=== PATIENT | female | born 1945 | race Caucasian/White ===

== ENCOUNTER → 2023-11-20 09:36 | Outpatient (REF) | payer OTHER, SELFPAY ==
[2023-11-23 15:10] LABS: Quantiferon Mitogen minus NIL 9.41 IU/mL; Quantiferon NIL 0.07 IU/mL; Quantiferon Plus TB1 minus NIL 0.01 IU/mL (0.00-0.34); Quantiferon Plus TB2 minus NIL 0.02 IU/mL (0.00-0.34); Quantiferon TB Gold Plus Negative (Negative)
== END ==
LOC: REG 09:36
PROVIDERS: ATTENDING PHYSICIAN Internal Medicine Rheumatology; FAMILY PHYSICIAN Family Medicine; REFERRING PHYSICIAN Dermatology
DX: L40.50 Arthropathic psoriasis, unspecified (principal); M06.09 Rheumatoid arthritis without rheumatoid factor, multiple sites; M19.041 Primary osteoarthritis, right hand; M81.0 Age-related osteoporosis without current pathological fracture; R26.89 Other abnormalities of gait and mobility; R76.12 Nonspecific reaction to cell mediated immunity measurement of gamma interferon antigen response without active tuberculosis; Z51.81 Encounter for therapeutic drug level monitoring
CPT/HCPCS: 36415; 86480

== ENCOUNTER 2023-12-01 12:05 | Outpatient (RCR) | payer OTHER, SELFPAY | END 2023-12-01 23:59 | disposition home or self-care (01) | LOC: RPT 12:05 | PROVIDERS: ATTENDING PHYSICIAN Obstetrics & Gynecology; PRIMARYCARE PHYSICIAN Family Medicine | DX: N39.41 Urge incontinence (principal); M62.81 Muscle weakness (generalized); R26.89 Other abnormalities of gait and mobility; Z73.6 Limitation of activities due to disability; M25.552 Pain in left hip | CPT/HCPCS: 97110; 97112 ==

== ENCOUNTER 2024-01-07 11:54 | Outpatient (RCR) | payer OTHER, SELFPAY | END 2024-01-07 23:59 | disposition home or self-care (01) | LOC: RPT 11:54 | PROVIDERS: ATTENDING PHYSICIAN Obstetrics & Gynecology; PRIMARYCARE PHYSICIAN Family Medicine | DX: N39.41 Urge incontinence (principal); M62.81 Muscle weakness (generalized); R26.89 Other abnormalities of gait and mobility; Z73.6 Limitation of activities due to disability | CPT/HCPCS: 97110; 97140 ==

== ENCOUNTER → 2024-02-13 11:12 | Outpatient (REF) | payer OTHER, SELFPAY | LOC: RAD 11:12 | PROVIDERS: ATTENDING PHYSICIAN Family Medicine | DX: R07.81 Pleurodynia (principal) | CPT/HCPCS: 36415; 71101 ==

== ENCOUNTER 2024-04-01 01:27 | Emergency (ER) | payer OTHER, SELFPAY ==
[2024-04-01 01:27] VITALS: BMI 36.5
[2024-04-01 01:31] VITALS: BP 148/75
--- NOTE | 2024-04-01 01:49 | ED.GENMED ---
History of Present Illness
General
Chief Complaint: Musculo-Skeletal Complaint
Source: patient and ambulance crew
Exam Limitations: none
Time Seen by Provider: 04/01/24 01:32
History of Present Illness
History of Present Illness:
This a pleasant 78-year-old female who presents with right knee pain. She reports that she was moving around in bed when she felt a 'pop 'in her right knee. Patient had a right knee replacement by Dr. Fontenot at [facility]. Patient denies
any trauma. Does report that she cannot straighten out the knee.
Past History
Past History
ED Past Medical History: Asthma, GERD, HTN, Hypothyroidism and Other (Rheumatoid arthritis, Sears's palsy, lung disease)
ED Past Surgical History: Orthopedic
Social History
Tobacco: Non-smoker
Alcohol: None
Drug: None
Personal:
Living: alone
Employment: Employed
Review of Systems
Review of Systems
Allergies reviewed?: Yes
All Other Systems: ROS reviewed and negative except as documented in HPI and ROS
Constitutional: Reports no symptoms
EENT: Reports no symptoms
Respiratory: Reports no symptoms
Cardiac: Reports no symptoms
ABD/GI: Reports no symptoms
: Reports no symptoms
Musculoskeletal: Reports joint pain and joint swelling
Skin: Reports no symptoms
Neurological: Reports no symptoms
Endocrine: Reports no symptoms
Hematologic/Lymphatic: Reports no symptoms
Psychiatric: Reports anxiety
Phy Exam
General Physical Exam
General Presentation: well appearing and moderate distress
General age: appears stated age
General Skin: warm
General Habitus: obese
General Mental: alert
ENT Exam
ENT Exam: EOMI and neck supple
Cardiovascular Exam
Cardiovascular Exam: regular rate/rhythm and no edema
Pulmonary Exam
Pulmonary Exam: lungs clear and no respiratory distress
Neurological Exam
Neurological Exam: alert and oriented x3
Musculoskeletal Exam
Musculoskeletal Exam: edema, joint swelling, neuro vasc intact and other (Knee is stuck at 45 degrees.)
Skin Exam
Skin Exam: normal color
Psychiatric Exam
Psychiatric Exam: normal mood/affect
Course
Orders/Labs/Results
Orders:
Orders
04/01/24 01:36
CR Knee- Right 4 Or More View* Urgent
Comment:
Reason For Exam: pain
04/01/24 02:01
HYDROmorphone [Dilaudid] 1 mg IV NOW STA
Ondansetron Injectable [Zofran] 4 mg IV NOW STA
Vital Signs
Initial and Last Documented VS:
Initial Vital Signs
Temp Pulse Resp BP Pulse Ox
98.2 F 79 18 148/75 97
04/01/24 01:31 04/01/24 01:31 04/01/24 01:31 04/01/24 01:31 04/01/24 01:31
Last Documented Vital Signs
Temp Pulse Resp BP Pulse Ox
98.2 F 79 18 148/75 97
04/01/24 01:31 04/01/24 01:31 04/01/24 01:31 04/01/24 01:31 04/01/24 01:31
*Critical Care Note
Total Time (30-74mins, 75-104mins- exclusive of procedures): Not Applicable
Update Note
Update Note:
Spoke with Dr. Clifford who redirected me to [facility] based on the fact that Dr. Fontenot is a member of that group. Parag texted Dr. Mcginnis who is on-call for [facility].
Spoke with Dr. Mcginnis via Parag text: if it was just a simple hip prosthesis dislocation that�s easy. I think this is going to be more of an operative type of case. The other group has several total joint replacement surgeons, but they would never
touch anyone else�s work. I think only option is to transfer.
Patient agreeable to transfer
Called [facility], spoke with [facility] who agreed that patient should be transferred. Spoke with Dr. Harris, ER physician who accepted transfer
ED Attending Note
-
Portions of this chart may have been created with voice recognition software.� Occasional wrong word or��sound alike� substitutions may have occurred due to the inherent limitations of voice recognition software.
Discharge Plan
Departure
Patient Disposition: Acute Care Hospital
Date of Disposition: 04/01/24
Time of Disposition: 02:57
Condition: Good
Discharge Problem:
Dislocation of prosthetic knee joint
Prescriptions:
No Action
pantoprazole 40 MG tablet,delayed release (DR/EC)
40 mg PO DAILY
thyroid (pork) [[place] Thyroid] 60 MG tablet
60 mg PO DAILY
amlodipine 2.5 MG tablet
2.5 mg PO DAILY
fexofenadine [Angelica] 180 MG tablet
180 mg PO DAILY
acyclovir 400 MG tablet
400 mg PO BID
calcium carbonate 600 MG tablet
600 mg PO DAILY
budesonide [Pulmicort] 0.5 MG/2 ML suspension for nebulization
0.5 mg IH BID
halobetasol propionate 1 APPLIC cream
1 applic topical HS PRN (Reason: R heel rash)
Patient Comments:
TO R HEEL
albuterol sulfate 1 PUFF HFA aerosol inhaler
2 puff inhalation R Q4HPRN PRN (Reason: SOB)
fluticasone propionate 1 SPRAY spray,suspension
1 puff NASSPRAY Q6H PRN (Reason: ALLERGIES)
ipratropium bromide 0.2 MG/ML solution
0.5 mg inhalation BID
fluticasone propionate [Flovent HFA] 1 PUFF HFA aerosol inhaler
2 puff inhalation BID
magnesium oxide 500 MG capsule
500 mg PO QPM
Eliquis 5 MG tablet
5 mg PO BID
escitalopram oxalate 5 MG tablet
2.5 mg PO BID
cyanocobalamin (vitamin B-12) 1,000 MCG tablet
500 mcg PO DAILY
cholecalciferol (vitamin D3) 1,000 UNITS tablet
1,000 units PO BID
oxycodone 5 mg tablet
5 mg PO Q4H PRN (Reason: pain) Qty: 20 0RF
cyclobenzaprine 10 mg tablet
10 mg PO TID PRN (Reason: muscle spasm) Qty: 20 0RF
oxycodone 5 mg tablet
5 mg PO Q8H PRN (Reason: pain) Qty: 6 0RF
Referrals:
Rosaura Tubbs MD [Family Provider] -
Hospital Transfer
Other hospital: [facility]
I certify that the patient requires transfer: Yes
Discussed case with accepting physician: [facility] on behalf of Dr Harris
Reason for transfer: higher level of care
Interventions
Interventions:
*Risk Screen - Suicide Last Done: 04/01/24 01:31
*General Assessment Last Done: 04/01/24 01:31
*Neglect/Abuse Screening Last Done: 04/01/24 01:31
ED- Fall Risk Assessment Last Done: 04/01/24 01:27
*ED COVID-19 Vaccine History Last Done: 04/01/24 01:27
*Nursing Disposition Last Done: 04/01/24 03:50
ED-Musculoskeletal Assessment Last Done: 04/01/24 01:27
Discharge Date and Time
Discharge Date/Time: 04/01/24 03:52
Print Language: BRITISH
[2024-04-01] MEDS: ZOFRAN 4 MG IV (02:59)
[2024-04-01] MEDS: DILAUDID 1 MG IV (03:00)
== END 2024-04-01 03:52 | disposition short-term general hospital (02) ==
LOC: EMR 01:27
PROVIDERS: EMERGENCY PHYSICIAN Student in an Organized Health Care Education/Training Program; FAMILY PHYSICIAN Family Medicine
DX: T84.022A Instability of internal right knee prosthesis, initial encounter (principal); Y79.2 Prosthetic and other implants, materials and accessory orthopedic devices associated with adverse incidents; J45.909 Unspecified asthma, uncomplicated; K21.9 Gastro-esophageal reflux disease without esophagitis; I10 Essential (primary) hypertension; E03.9 Hypothyroidism, unspecified; M06.9 Rheumatoid arthritis, unspecified; Z96.651 Presence of right artificial knee joint
CPT/HCPCS: 99285; 96374; 96375; 73564; 99284

== ENCOUNTER → 2024-04-08 11:24 | Outpatient (REF) | payer OTHER, SELFPAY ==
[2024-04-08 12:24] LABS: % Basophils 0.5 % (0-2); % Eosinophils 2.9 % (0-6); % Immature Granulocytes 0.3 % (0-0.5); % Lymphocytes 16.6 % (20.5-51.1); % Monocytes 9.1 % (1.7-9.3); % Neutrophils 70.6 % (42.2-75.2); Absolute Eosinophils 0.2 10^3/uL (0-0.7); Absolute Lymphocytes 1.2 10^3/uL (1.2-3.4); Absolute Monocytes 0.7 10^3/uL (0.1-0.6); Absolute Neutrophils 5.2 10^3/uL (1.4-6.5); Hematocrit 35.1 % (37.0-47.0); Hemoglobin 11.5 g/dL (12.0-16.0); Mean Corp Hgb Conc. 32.8 g/dL (33.0-37.0); Mean Corpuscular Hgb 33.1 pg (27.0-31.0); Mean Corpuscular Volume 101.2 fL (81.0-99.0); Nucleated Red Blood Cells % 0 %; Platelet Count 290 10^3/uL (130-400); Red Blood Cell Count 3.47 10^6/uL (4.20-5.40); Red Cell Dist. Width 13.5 % (11.5-14.5); White Blood Cell Count 7.3 10^3/uL (4.8-10.8)
[2024-04-08 12:55] LABS: ALT (SGPT) 29 U/L (0-35); AST (SGOT) 31 U/L (14-36); Albumin 4.2 g/dl (3.5-5.0); Alkaline Phosphatase 76 U/L (38-126); Blood Urea Nitrogen 15 mg/dl (7-17); Calcium 9.7 mg/dl (8.4-10.2); Carbon Dioxide 29 mmol/L (22-30); Chloride 104 mmol/L (98-107); Glucose 111 mg/dl (70-99); Sodium 139 mmol/L (135-145); Total Bilirubin 0.6 mg/dl (0.2-1.3); Total Protein 7.2 g/dl (6.3-8.2); eGFR > 60.00
[2024-04-08 12:59] LABS: Erythrocyte Sed Rate 106 mm/hour (0-20)
[2024-04-08 13:15] LABS: Free T3 3.64 pg/ml (2.77-5.27); Free T4 0.91 ng/dl (0.78-2.19)
[2024-04-08 13:29] LABS: TSH 0.69 uIU/ml (0.47-4.68)
[2024-04-11 07:04] LABS: Quantiferon Mitogen minus NIL 1.09 IU/mL; Quantiferon NIL 0.07 IU/mL; Quantiferon Plus TB1 minus NIL 0.02 IU/mL (<=0.34); Quantiferon Plus TB2 minus NIL 0.02 IU/mL (<=0.34); Quantiferon TB Gold Plus Negative (Negative)
== END ==
LOC: REG 11:24
PROVIDERS: ATTENDING PHYSICIAN Internal Medicine Endocrinology, Diabetes & Metabolism; FAMILY PHYSICIAN Family Medicine; REFERRING PHYSICIAN Internal Medicine Rheumatology
DX: E03.9 Hypothyroidism, unspecified (principal); E07.9 Disorder of thyroid, unspecified; E55.9 Vitamin D deficiency, unspecified; L40.50 Arthropathic psoriasis, unspecified; M06.09 Rheumatoid arthritis without rheumatoid factor, multiple sites; M15.2 Bouchard's nodes (with arthropathy); M17.11 Unilateral primary osteoarthritis, right knee; M19.041 Primary osteoarthritis, right hand; M19.042 Primary osteoarthritis, left hand; M25.512 Pain in left shoulder; M54.2 Cervicalgia; M79.641 Pain in right hand; M79.642 Pain in left hand; M81.0 Age-related osteoporosis without current pathological fracture; R26.89 Other abnormalities of gait and mobility; R50.9 Fever, unspecified; Z11.1 Encounter for screening for respiratory tuberculosis; Z51.81 Encounter for therapeutic drug level monitoring; Z68.35 Body mass index [BMI] 35.0-35.9, adult; Z68.36 Body mass index [BMI] 36.0-36.9, adult; Z79.899 Other long term (current) drug therapy
CPT/HCPCS: 36415; 80053; 84439; 84443; 84481; 85025; 85652; 86140; 86480

== ENCOUNTER → 2024-04-22 13:08 | Outpatient (REF) | payer OTHER, SELFPAY | LOC: PAVMRI 13:08 | PROVIDERS: ATTENDING PHYSICIAN Nurse Practitioner Family; FAMILY PHYSICIAN Family Medicine | DX: M25.571 Pain in right ankle and joints of right foot (principal) | CPT/HCPCS: 73721 ==

== ENCOUNTER → 2024-05-11 11:36 | Outpatient (REF) | payer OTHER, SELFPAY ==
[2024-05-11 12:39] LABS: % Basophils 0.8 % (0-2); % Eosinophils 2.6 % (0-6); % Immature Granulocytes 0.3 % (0-0.5); % Neutrophils 67.3 % (42.2-75.2); Absolute Basophils 0.1 10^3/uL (0-0.2); Absolute Eosinophils 0.2 10^3/uL (0-0.7); Absolute Lymphocytes 1.4 10^3/uL (1.2-3.4); Absolute Monocytes 0.8 10^3/uL (0.1-0.6); Absolute Neutrophils 5.1 10^3/uL (1.4-6.5); Hematocrit 32.6 % (37.0-47.0); Mean Corp Hgb Conc. 33.7 g/dL (33.0-37.0); Mean Corpuscular Hgb 32.9 pg (27.0-31.0); Mean Corpuscular Volume 97.6 fL (81.0-99.0); Mean Platelet Volume 8.8 fL (7.4-10.4); Nucleated Red Blood Cells % 0 %; Platelet Count 283 10^3/uL (130-400); Red Blood Cell Count 3.34 10^6/uL (4.20-5.40); Red Cell Dist. Width 13.8 % (11.5-14.5); White Blood Cell Count 7.6 10^3/uL (4.8-10.8)
[2024-05-11 13:01] LABS: ALT (SGPT) 20 U/L (0-35); AST (SGOT) 25 U/L (14-36); Albumin 4.2 g/dl (3.5-5.0); Alkaline Phosphatase 83 U/L (38-126); Blood Urea Nitrogen 15 mg/dl (7-17); Calcium 9.6 mg/dl (8.4-10.2); Carbon Dioxide 29 mmol/L (22-30); Chloride 101 mmol/L (98-107); Glucose 87 mg/dl (70-99); Sodium 136 mmol/L (135-145); Total Bilirubin 0.5 mg/dl (0.2-1.3); Total Protein 7.1 g/dl (6.3-8.2); eGFR > 60.00
[2024-05-11 13:56] LABS: Erythrocyte Sed Rate 112 mm/hour (0-20)
[2024-05-12 17:18] LABS: Hepatitis B Surface Antigen Negative (Negative)
[2024-05-12 19:00] LABS: Hepatitis B Core Ab, IgM Negative (Negative)
[2024-05-12 19:12] LABS: Hepatitis B Core Ab, Total Negative (Negative); Hepatitis C Antibody Negative (Negative)
[2024-05-13 14:04] LABS: Quantiferon NIL 0.09 IU/mL; Quantiferon Plus TB1 minus NIL 0.01 IU/mL (<=0.34); Quantiferon Plus TB2 minus NIL 0.03 IU/mL (<=0.34); Quantiferon TB Gold Plus Negative (Negative)
== END ==
LOC: REG 11:36
PROVIDERS: ATTENDING PHYSICIAN Physician Assistant; FAMILY PHYSICIAN Dermatology
DX: L40.50 Arthropathic psoriasis, unspecified (principal); Z11.1 Encounter for screening for respiratory tuberculosis; Z51.81 Encounter for therapeutic drug level monitoring; Z79.899 Other long term (current) drug therapy; M79.643 Pain in unspecified hand
CPT/HCPCS: 36415; 73130; 80053; 85025; 85652; 86140; 86480; 86704; 86705; 86803; 87340

== ENCOUNTER → 2024-11-09 11:25 | Outpatient (REF) | payer OTHER, SELFPAY ==
[2024-11-09 12:08] LABS: Urine Albumin Negative (Neg - Trace); Urine Bilirubin Negative (Negative); Urine Character Clear (Clear); Urine Color Yellow; Urine Glucose Negative (Negative); Urine Ketone Negative (Negative); Urine Leukocyte 3+ (Negative); Urine Nitrite Negative (Negative); Urine Occult Blood 2+ (Negative); Urine Specific Gravity 1.005 (<1.030); Urine Urobilinogen Negative (Neg - 1+)
[2024-11-09 12:17] LABS: Urine Bacteria Few (Negative); Urine Red Blood Cell 0-2 /HPF (0-2)
[2024-11-09 12:26] LABS: % Basophils 0.8 % (0-2); % Immature Granulocytes 0.3 % (0-0.5); % Lymphocytes 20.2 % (20.5-51.1); % Monocytes 9.9 % (1.7-9.3); % Neutrophils 63.8 % (42.2-75.2); Absolute Basophils 0.1 10^3/uL (0-0.2); Absolute Eosinophils 0.4 10^3/uL (0-0.7); Absolute Lymphocytes 1.5 10^3/uL (1.2-3.4); Absolute Monocytes 0.8 10^3/uL (0.1-0.6); Absolute Neutrophils 4.9 10^3/uL (1.4-6.5); Hematocrit 36.1 % (37.0-47.0); Hemoglobin 11.5 g/dL (12.0-16.0); Mean Corp Hgb Conc. 31.9 g/dL (33.0-37.0); Mean Corpuscular Hgb 31.7 pg (27.0-31.0); Mean Corpuscular Volume 99.4 fL (81.0-99.0); Mean Platelet Volume 8.9 fL (7.4-10.4); Nucleated Red Blood Cells % 0 %; Platelet Count 282 10^3/uL (130-400); Red Blood Cell Count 3.63 10^6/uL (4.20-5.40); Red Cell Dist. Width 14.9 % (11.5-14.5); White Blood Cell Count 7.6 10^3/uL (4.8-10.8)
[2024-11-09 15:45] LABS: ALT (SGPT) 17 U/L (0-35); AST (SGOT) 23 U/L (14-36); Albumin 4.3 g/dl (3.5-5.0); Alkaline Phosphatase 76 U/L (38-126); Blood Urea Nitrogen 13 mg/dl (7-17); Calcium 9.1 mg/dl (8.4-10.2); Carbon Dioxide 29 mmol/L (22-30); Chloride 99 mmol/L (98-107); Glucose 109 mg/dl (70-99); HDL Cholesterol 55 mg/dl; LDL Cholesterol, Calculated 128 mg/dl; Potassium 4.4 mmol/L (3.5-5.1); Sodium 138 mmol/L (135-145); Total Bilirubin 0.4 mg/dl (0.2-1.3); Total Cholesterol 201 mg/dl (50-199); Total Protein 7.4 g/dl (6.3-8.2); Triglyceride 92 mg/dl (10-149); Very Low Density Lipoprotein 18 mg/dl (0-30); eGFR > 60.00
[2024-11-09 16:09] LABS: Vitamin D, 25-OH*** 58.8 ng/mL (30-80)
[2024-11-09 16:23] LABS: TSH Reflex To Free T4 2.28 uIU/ml (0.47-4.68)
[2024-11-09 17:06] LABS: Folate 9.4 ng/ml (2.76-20); Vitamin B12 959 pg/ml (239-931)
== END ==
LOC: REG 11:25
PROVIDERS: ATTENDING PHYSICIAN Family Medicine; OTHER PHYSICIAN Nurse Practitioner Primary Care
DX: I10 Essential (primary) hypertension (principal); D75.89 Other specified diseases of blood and blood-forming organs; I48.0 Paroxysmal atrial fibrillation; E03.9 Hypothyroidism, unspecified; E55.9 Vitamin D deficiency, unspecified; M81.0 Age-related osteoporosis without current pathological fracture
CPT/HCPCS: 36415; 80053; 80061; 81003; 81015; 82306; 82607; 82746; 84443; 85025

== ENCOUNTER → 2024-11-17 12:17 | Outpatient (REF) | payer OTHER, SELFPAY | LOC: WDC 12:17 | PROVIDERS: ATTENDING PHYSICIAN Obstetrics & Gynecology Gynecology; FAMILY PHYSICIAN Family Medicine | DX: N95.0 Postmenopausal bleeding (principal); Z12.39 Encounter for other screening for malignant neoplasm of breast; M81.0 Age-related osteoporosis without current pathological fracture; Z12.31 Encounter for screening mammogram for malignant neoplasm of breast | CPT/HCPCS: 76830; 76856; 77063; 77067; 77080 ==

== ENCOUNTER → 2024-12-09 11:26 | Outpatient (REF) | payer OTHER, SELFPAY ==
[2024-12-09 12:28] LABS: % Eosinophils 4.4 % (0-6); % Immature Granulocytes 0.3 % (0-0.5); % Lymphocytes 29.1 % (20.5-51.1); % Monocytes 10.1 % (1.7-9.3); % Neutrophils 55.1 % (42.2-75.2); Absolute Basophils 0.1 10^3/uL (0-0.2); Absolute Eosinophils 0.3 10^3/uL (0-0.7); Absolute Monocytes 0.7 10^3/uL (0.1-0.6); Absolute Neutrophils 3.8 10^3/uL (1.4-6.5); Hematocrit 36.4 % (37.0-47.0); Hemoglobin 11.6 g/dL (12.0-16.0); Mean Corp Hgb Conc. 31.9 g/dL (33.0-37.0); Mean Corpuscular Hgb 32.2 pg (27.0-31.0); Mean Corpuscular Volume 101.1 fL (81.0-99.0); Nucleated Red Blood Cells % 0 %; Platelet Count 273 10^3/uL (130-400); Red Cell Dist. Width 15.1 % (11.5-14.5); White Blood Cell Count 6.8 10^3/uL (4.8-10.8)
[2024-12-09 13:31] LABS: ALT (SGPT) 17 U/L (0-35); AST (SGOT) 19 U/L (14-36); Albumin 4.2 g/dl (3.5-5.0); Alkaline Phosphatase 73 U/L (38-126); Blood Urea Nitrogen 14 mg/dl (7-17); Carbon Dioxide 33 mmol/L (22-30); Chloride 97 mmol/L (98-107); Glucose 91 mg/dl (70-99); Potassium 4.4 mmol/L (3.5-5.1); Sodium 137 mmol/L (135-145); Total Bilirubin 0.5 mg/dl (0.2-1.3); Total Protein 7.2 g/dl (6.3-8.2); eGFR > 60.00
[2024-12-09 14:05] LABS: Erythrocyte Sed Rate 58 mm/hour (0-20)
== END ==
LOC: REG 11:26
PROVIDERS: ATTENDING PHYSICIAN Internal Medicine; FAMILY PHYSICIAN Family Medicine
DX: L40.50 Arthropathic psoriasis, unspecified (principal)
CPT/HCPCS: 36415; 80053; 85025; 85652; 86140

== ENCOUNTER → 2025-01-09 11:50 | Outpatient (REF) | payer OTHER, SELFPAY | LOC: HWRCS 11:50 | PROVIDERS: ATTENDING PHYSICIAN Nurse Practitioner; FAMILY PHYSICIAN Family Medicine | DX: I48.0 Paroxysmal atrial fibrillation (principal); I10 Essential (primary) hypertension; R06.02 Shortness of breath; R07.89 Other chest pain | CPT/HCPCS: 78452; 93017; A9500; J2785 ==

== ENCOUNTER → 2025-01-13 07:30 | Outpatient (REF) | payer OTHER, SELFPAY | LOC: CLAB 07:30 | PROVIDERS: ATTENDING PHYSICIAN Obstetrics & Gynecology Gynecology | DX: N87.9 Dysplasia of cervix uteri, unspecified (principal) | CPT/HCPCS: 88305; 88307 ==

== ENCOUNTER 2025-01-30 20:39 | Emergency (ER) | payer OTHER, SELFPAY ==
[2025-01-30 20:41] VITALS: BP 192/87
[2025-01-31] MEDS: LIDOCAINE 4% PATCH 1 PATCH TOPICAL (00:26)
[2025-01-31] MEDS: TYLENOL 500 MG PO (00:26)
--- NOTE | 2025-01-31 00:26 | ED.GENMED ---
History of Present Illness
General
Chief Complaint: Back Pain
Source: patient
Exam Limitations: none
Time Seen by Provider: 01/30/25 23:57
Nursing documentation reviewed up to this point in time: agreed with
History of Present Illness
History of Present Illness:
This is a 79-year-old female with a past medical history of sciatica, A-fib on Eliquis, GERD, rheumatoid arthritis, who presents to the ER today with concerns low back pain radiating to the right thigh for the past 3 days. Patient reports that she
has been taking Tylenol with minimal relief. She reports that she is able to walk and ambulate without any difficulties. Patient is compliant with her Eliquis. Patient reports that the pain got worse this evening and reports that is keeping her
up and she could not sleep because of it. Patient does follow with Dr. Fontenot orthopedist from [facility] she does have a follow-up appointment coming up for him. Patient denies any urinary incontinence, saddle paresthesias, fevers or chills. Patient
denies any redness or swelling in her lower extremities, any ecchymosis. Patient denies any paresthesias. Patient states that she has had this in the past was gone away on its own. Patient states that the pain is constant but there will be
intermittent spasms associated with this.
Past History
Past History
ED Past Medical History: Asthma, GERD, HTN, Hypothyroidism and Other (Rheumatoid arthritis, Sears's palsy, lung disease)
ED Past Surgical History: Orthopedic
Social History
Tobacco: Non-smoker
Alcohol: None
Drug: None
Personal:
Living: alone
Employment: Employed
Review of Systems
Review of Systems
All Other Systems: ROS reviewed and negative except as documented in HPI and ROS
Phy Exam
Physical Exam
Physical Exam:
General: Patient is well appearing and in no acute distress; non-toxic
Skin: Warm and dry, no rashes or lesions
Head: Normocephalic, atraumatic
Eyes: Sclera non-icteric. EOMs intact.
Cardiac: Regular rate
Peripheral Vascular: No lower extremity swelling or edema, no asymmetry, no palpable hematoma. 2+ dorsalis pedis and posterior tibial pulses on the right.
Pulm: Normal respiratory effort
Abdomen: No abdominal tenderness to palpation
Musculoskeletal: Tenderness to palpation in the right posterior thigh with with no palpable mass or bony deformity, some mild midline lower lumbar tenderness, no paraspinal tenderness, mild pain with external rotation of the right hip
Neuro: CN II-XII intact, no focal neurologic deficits. 5 out of 5 strength in bilateral lower extremities.
Psychiatric: Appropriate mood and affect.
Course
Orders/Labs/Results
Orders:
Orders
01/31/25 00:19
Acetaminophen [Tylenol] 500 mg PO NOW STA
Lidocaine [Lidocaine 4% Patch] 1 patch TOPICAL DAILY ONE
Apply Lidocaine patch(s) to:: right posterior thigh
CR Hip - RT w/wo Pel 2-3 Vw* Urgent
Comment:
Reason For Exam: right thigh pain
Include a pelvis x-ray?: Yes
CR Lumbar Spine 2 Or 3 Views Urgent
Comment:
Reason For Exam: low back pain
Vital Signs
Initial and Last Documented VS:
Initial Vital Signs
Temp Pulse Resp BP Pulse Ox
98.1 F 90 20 192/87 96
01/30/25 20:41 01/30/25 20:41 01/30/25 20:41 01/30/25 20:41 01/30/25 20:41
Last Documented Vital Signs
Temp Pulse Resp BP Pulse Ox
98.1 F 72 18 131/61 94
01/30/25 20:41 01/31/25 01:01 01/31/25 01:01 01/31/25 01:01 01/31/25 01:01
MDM/Problems Addressed
Differential Diagnosis Includes:
ddx include sciatica/herniated disc, paralumbar muscle strain, hematoma, thigh sprain/strain
MDM/Problems Addressed:
79-year-old female presents emergency department today with concerns of low back pain radiating into the right thigh for past 3 days. She not fall or injure any injury to the area. She does take Eliquis however on exam there is no evidence of
hematoma, her lower extremities are symmetric. I observed her move her lower extremities by herself without any difficulty with 5 out of 5 strength, again, able to ambulate without any difficulty demonstrates steady gait. Patient states that this
feels like when she had sciatica in the past. Will start on course of steroids advised patient to follow-up with her orthopedist. Patient stable for discharge.
*Critical Care Note
Total Time (30-74mins, 75-104mins- exclusive of procedures): Not Applicable
ED Attending Note
-
Portions of this chart may have been created with voice recognition software.� Occasional wrong word or��sound alike� substitutions may have occurred due to the inherent limitations of voice recognition software.
Discharge Plan
Departure
Patient Disposition: Home (Routine Discharge)
Date of Disposition: 01/31/25
Time of Disposition: 01:46
Patient with high blood pressure during this ER visit?: Yes
Condition: Good
Discharge Problem:
Sciatica of right side
Instructions: Low Back Pain (DC), Radiculopathy (DC), BLOOD PRESSURE
Prescriptions:
New
prednisone 20 mg tablet
40 mg PO DAILY 5 Days Qty: 10 0RF
No Action
pantoprazole 40 MG tablet,delayed release (DR/EC)
40 mg PO DAILY
thyroid (pork) [[place] Thyroid] 60 MG tablet
60 mg PO DAILY
amlodipine 2.5 MG tablet
2.5 mg PO DAILY
fexofenadine [Angelica] 180 MG tablet
180 mg PO DAILY
acyclovir 400 MG tablet
400 mg PO BID
calcium carbonate 600 MG tablet
600 mg PO DAILY
budesonide [Pulmicort] 0.5 MG/2 ML suspension for nebulization
0.5 mg IH BID
halobetasol propionate 1 APPLIC cream
1 applic topical HS PRN (Reason: R heel rash)
Patient Comments:
TO R HEEL
albuterol sulfate 1 PUFF HFA aerosol inhaler
2 puff inhalation R Q4HPRN PRN (Reason: SOB)
fluticasone propionate 1 SPRAY spray,suspension
1 puff NASSPRAY Q6H PRN (Reason: ALLERGIES)
ipratropium bromide 0.2 MG/ML solution
0.5 mg inhalation BID
fluticasone propionate [Flovent HFA] 1 PUFF HFA aerosol inhaler
2 puff inhalation BID
magnesium oxide 500 MG capsule
500 mg PO QPM
Eliquis 5 MG tablet
5 mg PO BID
escitalopram oxalate 5 MG tablet
2.5 mg PO BID
cyanocobalamin (vitamin B-12) 1,000 MCG tablet
500 mcg PO DAILY
cholecalciferol (vitamin D3) 1,000 UNITS tablet
1,000 units PO BID
oxycodone 5 mg tablet
5 mg PO Q4H PRN (Reason: pain) Qty: 20 0RF
cyclobenzaprine 10 mg tablet
10 mg PO TID PRN (Reason: muscle spasm) Qty: 20 0RF
oxycodone 5 mg tablet
5 mg PO Q8H PRN (Reason: pain) Qty: 6 0RF
Referrals:
Rosaura Tubbs MD [Family Provider] -
Activity Restrictions/Additional Instructions:
Prednisone has been sent to your pharmacy. Please take 40 mg once daily for 5 days.
Please follow-up with your orthopedist.
PLEASE RETURN EMERGENCY DEPARTMENT SHOULD YOU DEVELOP CHEST PAIN, SHORTNESS OF BREATH, DIZZINESS, LIGHTHEADEDNESS, URINARY OR FECAL INCONTINENCE, INABILITY AMBULATE, FEVERS OR CHILLS, OR ANY OTHER SIGNS OR SYMPTOMS WORRISOME TO YOU.
Interventions
Interventions:
*Risk Screen - Suicide Last Done: 01/30/25 23:15
*General Assessment Last Done: 01/30/25 20:41
*Neglect/Abuse Screening Last Done: 01/30/25 23:15
*ED- Fall Risk Assessment Last Done: 01/30/25 23:15
*ED COVID-19 Vaccine History Last Done: 01/30/25 23:15
*Nursing Disposition Last Done: 01/31/25 01:51
ED-Musculoskeletal Assessment Last Done: 01/30/25 23:15
Discharge Date and Time
Discharge Date/Time: 01/31/25 01:52
Print Language: ITALIAN
[2025-01-31 01:01] VITALS: BP 131/61
== END 2025-01-31 01:52 | disposition home or self-care (01) ==
LOC: EMR 20:39
PROVIDERS: EMERGENCY PHYSICIAN Emergency Medicine; FAMILY PHYSICIAN Family Medicine
DX: M54.41 Lumbago with sciatica, right side (principal); J45.909 Unspecified asthma, uncomplicated; I10 Essential (primary) hypertension; E03.9 Hypothyroidism, unspecified; I48.91 Unspecified atrial fibrillation; Z79.01 Long term (current) use of anticoagulants; M06.9 Rheumatoid arthritis, unspecified
CPT/HCPCS: 99284; 72100; 73502

== ENCOUNTER → 2025-03-25 10:14 | Outpatient (REF) | payer OTHER, SELFPAY | LOC: MRI 3T 10:14 | PROVIDERS: ATTENDING PHYSICIAN Physician Assistant Surgical; FAMILY PHYSICIAN Family Medicine | DX: M54.16 Radiculopathy, lumbar region (principal); M54.50 Low back pain, unspecified; M41.86 Other forms of scoliosis, lumbar region; M47.816 Spondylosis without myelopathy or radiculopathy, lumbar region | CPT/HCPCS: 72148 ==

== ENCOUNTER 2025-04-07 10:58 | Outpatient (RCR) | payer OTHER, SELFPAY | END 2025-04-07 23:59 | disposition home or self-care (01) | LOC: RPT 10:58 | PROVIDERS: ATTENDING PHYSICIAN Family Medicine | DX: M54.31 Sciatica, right side (principal); M25.551 Pain in right hip; Z73.6 Limitation of activities due to disability; R26.89 Other abnormalities of gait and mobility; M62.81 Muscle weakness (generalized) | CPT/HCPCS: 97110; 97112; 97162; 97535 ==

== ENCOUNTER 2025-05-04 13:16 | Outpatient (RCR) | payer OTHER, SELFPAY | END 2025-05-04 23:59 | disposition home or self-care (01) | LOC: RPT 13:16 | PROVIDERS: ATTENDING PHYSICIAN Family Medicine | DX: M54.31 Sciatica, right side (principal); M25.551 Pain in right hip; Z73.6 Limitation of activities due to disability; R26.89 Other abnormalities of gait and mobility; M62.81 Muscle weakness (generalized) | CPT/HCPCS: 97110; 97112 ==

== ENCOUNTER → 2025-06-07 11:09 | Outpatient (REF) | payer OTHER, SELFPAY ==
[2025-06-07 12:59] LABS: Hematocrit 36.7 % (37.0-47.0); Hemoglobin 11.8 g/dL (12.0-16.0); Mean Corp Hgb Conc. 32.2 g/dL (33.0-37.0); Mean Corpuscular Volume 104.3 fL (81.0-99.0); Nucleated Red Blood Cells % 0 %; Platelet Count 266 10^3/uL (130-400); Red Cell Dist. Width 14.1 % (11.5-14.5)
[2025-06-07 13:27] LABS: ALT (SGPT) 14 U/L (0-35); AST (SGOT) 17 U/L (14-36); Albumin 4.3 g/dl (3.5-5.0); Alkaline Phosphatase 52 U/L (38-126); Blood Urea Nitrogen 18 mg/dl (7-17); Calcium 10.5 mg/dl (8.4-10.2); Carbon Dioxide 33 mmol/L (22-30); Chloride 103 mmol/L (98-107); Glucose 94 mg/dl (70-99); Potassium 4.2 mmol/L (3.5-5.1); Sodium 140 mmol/L (135-145); Total Protein 6.9 g/dl (6.3-8.2); eGFR > 60.00
[2025-06-07 13:29] LABS: C-Reactive Protein 9.00 mg/L (0.0-10.00)
[2025-06-07 13:45] LABS: Vitamin D, 25-OH*** 51.9 ng/mL (30-80)
== END ==
LOC: REG 11:09
PROVIDERS: ATTENDING PHYSICIAN Internal Medicine; FAMILY PHYSICIAN Family Medicine; REFERRING PHYSICIAN Dermatology
DX: L40.50 Arthropathic psoriasis, unspecified (principal); M06.09 Rheumatoid arthritis without rheumatoid factor, multiple sites; M81.0 Age-related osteoporosis without current pathological fracture
CPT/HCPCS: 36415; 80053; 82306; 85025; 85652; 86140

== ENCOUNTER 2025-09-04 07:23 | Day surgery (SDC) | payer OTHER, SELFPAY ==
[2025-08-28 11:58] VITALS: BMI 38.2
[2025-08-28 12:50] LABS: Hematocrit 36.0 % (37.0-47.0); Hemoglobin 11.8 g/dL (12.0-16.0); Mean Corp Hgb Conc. 32.8 g/dL (33.0-37.0); Mean Corpuscular Volume 99.4 fL (81.0-99.0); Nucleated Red Blood Cells % 0 %; Platelet Count 224 10^3/uL (130-400); Red Cell Dist. Width 14.9 % (11.5-14.5)
[2025-08-28 12:55] LABS: INR 1.10; PT 14.5 Sec (11.4-14.6)
[2025-08-28 13:15] LABS: ALT (SGPT) 16 U/L (0-35); AST (SGOT) 19 U/L (14-36); Albumin 4.2 g/dl (3.5-5.0); Alkaline Phosphatase 59 U/L (38-126); Blood Urea Nitrogen 23 mg/dl (7-17); Calcium 9.5 mg/dl (8.4-10.2); Carbon Dioxide 32 mmol/L (22-30); Chloride 100 mmol/L (98-107); Estimated Creatinine Clearance 67 ml/min; Glucose 77 mg/dl (70-99); Magnesium 2.0 mg/dl (1.6-2.3); Potassium 4.2 mmol/L (3.5-5.1); Sodium 137 mmol/L (135-145); Total Protein 6.9 g/dl (6.3-8.2); eGFR > 60.00
[2025-09-04] VITALS (10 sets, daily range): BP systolic 122–140; BP diastolic 69–83; BMI 37.9
--- NOTE | 2025-09-04 07:55 | ITS.CL.ABL ---
S[facility]itcher - Ablation
Ablation
Procedure Report:
ELECTROPHYSIOLOGIC STUDY AND POSSIBLE ABLATION
DATE: September 04, 2025
Primary Care Provider: Dr Rosaura Tubbs
INDICATION:
Symptomatic Atrial Fibrillation.
Paroxysmal
HISTORY: See H and P.
Symptomatic AF, poorly controlled with attempted medical therapy
Underwent cryoballoon PVI ablation in 2019. Subsequently has recurred with symptomatic paroxysmal atrial fibrillation.
She carries a history of symptomatic paroxysmal atrial fibrillation.
Initial management included antiarrhythmic drug therapy with propafenone, but this failed to adequately control her symptoms.
She underwent PVI on 08/02/20.
She also continues on CPAP for ELIZABETH.�
She has been maintained on oral anticoagulation with Eliquis. CHADSVasc = 4 (HTN, Age, F).
HAS-BLED:
Age
CHADSVASc:
HTN
Age
F Gender
PRESENTING RHYTHM: SR
HISTORY: See H and P.
Symptomatic AF, poorly controlled with attempted medical therapy.
ANTICOAGULATION: Apixaban 5 mg twice daily
'TIME-OUT': called and confirmed.
SEDATION/ANESTHESIA: provided via the anesthesia department using general anesthesia.
PROCEDURE:
Ultrasound Guidance with real-time visualization of needle insertion and vessel patency performed by tx for femoral venous Vascular Access.
Under real-time US guidance, the needle was advanced with negative pressure into the vein. The needle was seen entering the vessel lumen with a good return of dark red flow, the syringe was removed, non-pulsatile, dark red blood low was noted and
the wire was passed without difficulty, then the needle was removed. US confirmed the wire was in the vein, not going into an artery,
Images were taken and saved for the patient's permanent record. Imaging findings typical femoral venous anatomy. Direct visualization of needle puncture into the femoral vein was observed and recorded.
3 sheaths were inserted into the right femoral vein.
10 Fr, 10Fr, 7 Fr. A 10fr sheath was then exchanged for the 16.8 Fr Faradrive deflectable sheath and dilator over a wire.
A decapolar CS catheter was positioned within the CS for mapping and pacing.
The intracardiac ultrasound catheter was positioned in the RA for continuous intracardiac ultrasound imaging.
Heparin bolus and infusion to target ACT at 300 -350 seconds was administered. Transseptal puncture was performed. This entailed advancing a sheath with dilator into the superior vena cava and withdrawing both (monitoring intracardiac ultrasound,
fluoroscopy and tip pressure) with the tip oriented toward the atrial septum. The fossa ovalis was engaged (indicated by sudden displacement of the sheath tip as well as tenting of the fossa seen on intracardiac ultrasound).
The [employer] transseptal system utilizing [employer] RF was used. Left atrial catheter position was confirmed by echocardiographic imaging and fluoroscopy followed by RF delivery using the [employer] system resulting in successful LA access with
pressure monitoring demonstrating LA pressure waveforms (LA mean pressure 19 mm Hg). The Faradrive sheath was advanced over the dilator and positioned in the left atrium.
The Devi Grid multipolar mapping catheter was initially positioned through the transseptal sheath for high density mapping.
Geometry and voltage mapping was performed using the Devi multipolar grid catheter. Ensite-X was utilized for three-dimensional electroanatomical mapping.
A 3-D map was created using Ensite-X in Voxel mode. A 3-D reconstructed CT image was compared to the 3-D Navex map to assist in anatomic evaluation, mapping and ablation.
The [employer] PFA catheter and system was used for cardiac ablation. Catheter positioning was guided and confirmed using both I.C.E. and fluoroscopy.
Ablation strategy included PVI as well as mapping for extra PV contributors to atrial fibrillation which would also be targeted if present.
High density electroanatomical three-dimensional mapping demonstrated 4 PVs: LSPV, LIPV, RSPV, RIPV.
There is reconnection at the posterior quadrant of the right superior pulmonary vein. This was treated with pulsed electric field energy delivery, isolating the pulmonary vein
After accomplishing pulmonary venous isolation, mapping identified additional areas likely to be extra PV contributors to atrial fibrillation. These areas demonstrated patchy low voltage as well as complex fractionated electrograms. These areas can
be sites for the formation of rotors which can drive and maintain atrial fibrillation. These areas are known to be significant contributors to initiation and perpetuation of atrial fibrillation.
Additional energy applications/additional ablation sets targeted extra PV contributors to atrial fibrillation.
Targets for additional PFA ablation included:
LA posterior wall targeted with pulsed electric field energy isolating the posterior wall of the left atrium
After ablation of the posterior wall, additional targets were addressed:
LA inferior floor
These areas were ablated using pulsed electric field energy eliminating the extra PV contributors to atrial fibrillation.
Post ablation mapping finds entrance and exit block at each of the pulmonary veins, the LA posterior wall and at the additional line at the inferior/floor of the LA rendering the sites no longer able to contribute to atrial fibrillation.
Programmed electrostimulation including burst atrial pacing as well the delivery of decremental extrastimuli down to atrial effective refractory period and no sustained arrhythmias could be induced.
I.C.E. :
Pre-Ablation Post-Ablation
LVEF: 55 % 55 %
WMA: none none
Pericardial effusion: none none
LA Pressure (mmHg) 19 17
COMPLICATIONS:
none
SUMMARY:
- Mapping and ablation to isolate the PVs resulting in electrical isolation of the pulmonary veins
- Additional AF ablation sets X 2 after PVI (LA posterior wall, Inf/floor of the LA posterior wall) resulting in elimination of the targeted extra PV contributors to atrial fibrillation.
- 3-D Electroanatomical Mapping
- Intracardiac Ultrasound
- Ultrasound guidance for vascular access
Post ablation, I called and left a voice message with her To.
RECOMMENDATIONS:
- Observe in monitored bed.
- Maintain oral anticoagulation.
- Office visit with MICHAEL Reyes is scheduled for December 05, 2025
Copy to:
Dr Rosaura Tubbs
[2025-09-04 11:09] LABS: ACT-LR - POC 271 Seconds (116-155)
[2025-09-04] MEDS: TYLENOL 650 MG PO (13:14)
--- NOTE | 2025-09-04 16:08 | W.PN.UPDATE ---
Update Note
Progress Note Update
Pt seen post PFA. Right groin site without ht/bleeding, non tender. OOB ambulating, urinating without difficulty. Post EKG NSR 65 w/inc RBBB as before, no acute changes. Resume eliquis tonight. Pt complained of some 'zig zag' vision in her eyes that
happens at home, several times a week, states she thinks it's a 'mini TIA' and takes aspirin to help relieve symptoms. She denies any other neurological symptoms, speech clear and MAEE. She had closed her eyes and these symptoms then resolved after
20 minutes with no other intervention. Recommended that she followup with PCP for possible migraines. Followup at [facility] arranged. Home today if groin site/tele remain stable.
== END 2025-09-04 16:15 | disposition home or self-care (01) ==
LOC: CATH 07:23
PROVIDERS: ATTENDING PHYSICIAN Internal Medicine Cardiovascular Disease; FAMILY PHYSICIAN Family Medicine
DX: I48.0 Paroxysmal atrial fibrillation (principal); I47.19 Other supraventricular tachycardia; E03.9 Hypothyroidism, unspecified; E66.9 Obesity, unspecified; F32.A Depression, unspecified; F41.9 Anxiety disorder, unspecified; G47.33 Obstructive sleep apnea (adult) (pediatric); I11.9 Hypertensive heart disease without heart failure; I45.10 Unspecified right bundle-branch block; I48.92 Unspecified atrial flutter; I49.3 Ventricular premature depolarization; J45.909 Unspecified asthma, uncomplicated; L40.50 Arthropathic psoriasis, unspecified; M06.9 Rheumatoid arthritis, unspecified; M85.80 Other specified disorders of bone density and structure, unspecified site; Z79.01 Long term (current) use of anticoagulants; Z79.890 Hormone replacement therapy; Z79.899 Other long term (current) drug therapy; Z88.1 Allergy status to other antibiotic agents; Z88.2 Allergy status to sulfonamides; Z88.8 Allergy status to other drugs, medicaments and biological substances; Z96.653 Presence of artificial knee joint, bilateral
CPT/HCPCS: C1732; C1894; C1769; C1730; C1892; 36415; 80053; 83735; 85025; 85347; 85610; 86850; 86900; 86901; 93005; 93656; 93657; C1733; C1766